=== PATIENT | female | born 1970 | race Caucasian/White ===

== ENCOUNTER 2023-12-04 00:45 | Emergency (ER) | payer BC, SELFPAY ==
[2023-12-04 00:54] VITALS: BP 148/74
[2023-12-04 01:35] VITALS: BMI 31.9
[2023-12-04 01:37] VITALS: BP 134/79
[2023-12-04 01:46] LABS: % Basophils 0.5 % (0-2); % Immature Granulocytes 0.3 % (0-0.5); % Lymphocytes 25.8 % (20.5-51.1); % Monocytes 7.2 % (1.7-9.3); % Neutrophils 64.2 % (42.2-75.2); Absolute Eosinophils 0.2 10^3/uL (0-0.7); Absolute Lymphocytes 1.9 10^3/uL (1.2-3.4); Absolute Monocytes 0.5 10^3/uL (0.1-0.6); Absolute Neutrophils 4.8 10^3/uL (1.4-6.5); Hematocrit 35.8 % (37.0-47.0); Hemoglobin 12.5 g/dL (12.0-16.0); Mean Corp Hgb Conc. 34.9 g/dL (33.0-37.0); Mean Corpuscular Volume 88.8 fL (81.0-99.0); Nucleated Red Blood Cells % 0 %; Platelet Count 352 10^3/uL (130-400); Red Blood Cell Count 4.03 10^6/uL (4.20-5.40); Red Cell Dist. Width 12.5 % (11.5-14.5); White Blood Cell Count 7.5 10^3/uL (4.8-10.8)
[2023-12-04 02:00] VITALS: BP 116/69
[2023-12-04 02:03] LABS: ALT (SGPT) 31 U/L (0-35); AST (SGOT) 31 U/L (14-36); Albumin 4.4 g/dl (3.5-5.0); Alkaline Phosphatase 91 U/L (38-126); Blood Urea Nitrogen 22 mg/dl (7-17); Calcium 9.6 mg/dl (8.4-10.2); Carbon Dioxide 27 mmol/L (22-30); Chloride 101 mmol/L (98-107); Estimated Creatinine Clearance 92 ml/min; Glucose 123 mg/dl (70-99); Potassium 3.4 mmol/L (3.5-5.1); Sodium 142 mmol/L (135-145); Total Bilirubin 0.8 mg/dl (0.2-1.3); Total Protein 7.6 g/dl (6.3-8.2); eGFR > 60.00
[2023-12-04 02:08] LABS: Troponin I < 0.012 ng/ml
--- NOTE | 2023-12-04 02:45 | EDRN ---
Updated patient on blood work, and she is aware we are just waiting on the provider at this time, no complaints at this time.
--- NOTE | 2023-12-04 02:52 | ED.GENMED ---
History of Present Illness
<ASHLEY Reid - Last Filed: 12/04/23 06:12>
General
Chief Complaint: Chest Pain
Source: patient
Time Seen by Provider: 12/04/23 02:38
Nursing documentation reviewed up to this point in time: agreed with
History of Present Illness
History of Present Illness:
A 53-year-old female with a past medical history of migraine hypertension anxiety hyperlipidemia presents to the emergency room for sudden onset chest pain for 2 hours. Patient states the chest pain woke her from sleep. She states that she got up
out of bed but immediately felt like she was going to pass out so she laid herself out on the floor. She stated that she tried chewing gum to relieve the passing out symptoms. Patient stated that her pain at the moment is now dull and mild. She
denies respiratory pain, difficulty breathing, palpatations, abdominal pain, nausea, vomiting, diarrhea.
Patient states she has an extensive history of syncopal episodes and is followed by cardio GI and neurology. Her last syncopal episode was 2 years ago which resulted in a head injury, and ED visit, and a CT scan which was negative. She states
that she was recently diagnosed with asthma and has began albuterol as of a week ago.
Past History
<ASHLEY Reid - Last Filed: 12/04/23 06:12>
Past History
ED Past Medical History: Asthma, HTN, Hypercholesterolemia, Other (anemia) and Other (recurrent vasovagal syncope )
ED Past Surgical History: and Tonsilectomy
Social History
Tobacco: Non-smoker
Alcohol: Occasional
Drug: None
Personal:
Living: with family
Employment: Employed
Family History
Family History: Diabetes; Negative Early CAD or Sudden
Review of Systems
<ASHLEY Reid - Last Filed: 12/04/23 06:12>
Review of Systems
Constitutional: Reports no symptoms
Respiratory: Denies cough or trouble breathing
Cardiac: Reports chest pain
ABD/GI: Reports no symptoms
: Reports no symptoms
Musculoskeletal: Reports no symptoms
Skin: Reports no symptoms
Neurological: Reports no symptoms
Endocrine: Reports no symptoms
Phy Exam
<ASHLEY Reid - Last Filed: 12/04/23 06:12>
General Physical Exam
General Presentation: well appearing and no apparent distress
General age: appears stated age
General Skin: warm and dry
General Habitus: normal and obese
General Mental: alert
General Hydration: appears well hydrated
Eye Exam
Eye Exam: PERRL and EOMI
Cardiovascular Exam
Cardiovascular Exam: regular rate/rhythm, no edema, no gallop, no murmur and normal peripheral pulses
Pulmonary Exam
Pulmonary Exam: lungs clear, no respiratory distress, no rales, chest non tender, no crackles and no wheezing
Neurological Exam
Neurological Exam: alert and oriented x3
Musculoskeletal Exam
Musculoskeletal Exam: full ROM and neuro vasc intact
Skin Exam
Skin Exam: normal color, warm/dry and no rash
Psychiatric Exam
Psychiatric Exam: normal mood/affect
Scores
<ASHLEY Reid - Last Filed: 12/04/23 06:12>
Heart Score for Chest Pain Patients
STEMI patient?: No
History: Slightly or Non-Suspicious
ECG: Normal
Age: >45 - <65 years
Risk Factors: 1 or 2 Risk Factors
Troponin: </= Normal Limit
Heart Score for Chest Pain Patients: 2
Heart Score Risk: 2.5% MACE over next 6 weeks
<Hoa Fu DO - Last Filed: 12/04/23 06:37>
Heart Score for Chest Pain Patients
Heart Score for Chest Pain Patients: 2
Heart Score Risk: 2.5% MACE over next 6 weeks
Course
<ASHLEY Reid - Last Filed: 12/04/23 06:12>
Orders/Labs/Results
Orders:
Orders
12/04/23 00:48
ECG [Electrocardiogram (*1)] Urgent
Reason for Study: Chest Pain
EKG- Treatment ONCE
12/04/23 01:38
Complete Blood Count/With Diff Urgent
Comprehensive Metabolic Panel Urgent
Lipase Urgent
Comment: ADD ON
Troponin I Urgent
12/04/23 03:19
Add On- LAB Urgent
Tests Added?: LIPASE
12/04/23 03:28
Mag Hydrox/Al Hydrox/Simeth [Maalox] 30 ml Phenobarb/Hyoscy/Atropine/Scop [] 10 ml Viscous Lidocaine 2% [Xylocaine Viscous Cup] 10 ml PO NOW
12/04/23 03:36
Troponin I Urgent
12/04/23 03:38
Mag Hydrox/Al Hydrox/Simeth [Maalox] 30 ml .ROUTE .STK-MED ONE
Phenobarb/Hyoscy/Atropine/Scop [] 10 ml .ROUTE .STK-MED ONE
12/04/23 03:39
Viscous Lidocaine 2% [Xylocaine Viscous Cup] 15 ml .ROUTE .STK-MED ONE
12/04/23 04:57
CT Chest Angio W/wo Iv Contras Urgent
Comment:
Reason For Exam: acute severe SSCP w diaphoresis, near syncope
Abnormal Lab Results
12/04/23
01:38
RBC 4.03 L 10^6/uL
(4.20-5.40)
Hct 35.8 L %
(37.0-47.0)
Potassium 3.4 L mmol/L
(3.5-5.1)
BUN 22 H mg/dl
(7-17)
Glucose 123 H mg/dl
(70-99)
12/04/23 01:38
12/04/23 01:38
Vital Signs
Initial and Last Documented VS:
Initial Vital Signs
Temp Pulse Resp BP Pulse Ox
98.1 F 64 20 148/74 98
12/04/23 00:54 12/04/23 00:54 12/04/23 00:54 12/04/23 00:54 12/04/23 00:54
Last Documented Vital Signs
Temp Pulse Resp BP Pulse Ox
98.1 F 59 13 114/82 99
12/04/23 00:54 12/04/23 05:15 12/04/23 05:15 12/04/23 05:00 12/04/23 05:15
<Hoa Fu, DO - Last Filed: 12/04/23 06:37>
Orders/Labs/Results
Orders:
Orders
12/04/23 00:48
ECG [Electrocardiogram (*1)] Urgent
Reason for Study: Chest Pain
EKG- Treatment ONCE
12/04/23 01:38
Complete Blood Count/With Diff Urgent
Comprehensive Metabolic Panel Urgent
Lipase Urgent
Comment: ADD ON
Troponin I Urgent
12/04/23 03:19
Add On- LAB Urgent
Tests Added?: LIPASE
12/04/23 03:28
Mag Hydrox/Al Hydrox/Simeth [Maalox] 30 ml Phenobarb/Hyoscy/Atropine/Scop [] 10 ml Viscous Lidocaine 2% [Xylocaine Viscous Cup] 10 ml PO NOW
12/04/23 03:36
Troponin I Urgent
12/04/23 03:38
Mag Hydrox/Al Hydrox/Simeth [Maalox] 30 ml .ROUTE .STK-MED ONE
Phenobarb/Hyoscy/Atropine/Scop [] 10 ml .ROUTE .STK-MED ONE
12/04/23 03:39
Viscous Lidocaine 2% [Xylocaine Viscous Cup] 15 ml .ROUTE .STK-MED ONE
12/04/23 04:57
CT Chest Angio W/wo Iv Contras Urgent
Comment:
Reason For Exam: acute severe SSCP w diaphoresis, near syncope
Abnormal Lab Results
12/04/23
01:38
RBC 4.03 L 10^6/uL
(4.20-5.40)
Hct 35.8 L %
(37.0-47.0)
Potassium 3.4 L mmol/L
(3.5-5.1)
BUN 22 H mg/dl
(7-17)
Glucose 123 H mg/dl
(70-99)
12/04/23 01:38
12/04/23 01:38
Vital Signs
Initial and Last Documented VS:
Initial Vital Signs
Temp Pulse Resp BP Pulse Ox
98.1 F 64 20 148/74 98
12/04/23 00:54 12/04/23 00:54 12/04/23 00:54 12/04/23 00:54 12/04/23 00:54
Last Documented Vital Signs
Temp Pulse Resp BP Pulse Ox
98.1 F 59 13 114/82 99
12/04/23 00:54 12/04/23 05:15 12/04/23 05:15 12/04/23 05:00 12/04/23 05:15
<ASHLEY Reid - Last Filed: 12/04/23 06:12>
MDM/Problems Addressed
Differential Diagnosis Includes:
vasovagal syncope event , myocardial infarction,
Chronic conditions affecting care: HTN
<ASHLEY Reid - Last Filed: 12/04/23 06:12>
*Critical Care Note
Total Time (30-74mins, 75-104mins- exclusive of procedures): Not Applicable
<Hoa Fu DO - Last Filed: 12/04/23 06:37>
*Radiology
Radiology exam reviewed: radiology read reviewed
*Pulse Oximetry
Patient hypoxic: no
*EKG
Interpreted by ED Provider?: Yes
Interpretation: normal
Comparison EKG: no changes (Unchanged from previous December 06, 2022)
Rate: normal
Rhythm: sinus
[place]: normal axis
Interval: normal interval
QRS Pattern: normal QRS
Ischemia: no ischemia
*Certified Veterinary Technician Interpretation
Rate: normal
Interpretation: normal
Rhythm: sinus
ED Attending Note
<ASHLEY Reid - Last Filed: 12/04/23 06:12>
-
Portions of this chart may have been created with voice recognition software.� Occasional wrong word or��sound alike� substitutions may have occurred due to the inherent limitations of voice recognition software.
<Hoa Fu DO - Last Filed: 12/04/23 06:37>
ED Attending Note
Patient seen and examined by attending physician: Yes
I performed the substantive portion of visit, reviewed & personally made and approve the management plan that is documented in note by myself or JERZY.: Yes
ED Attending Note:
This is a 53-year-old woman with history of hypertension, history of vasovagal syncope, migraine headaches, hyperlipidemia who states she awoke around midnight tonight with abrupt onset of lower substernal chest pain, severe in nature, nonradiating,
initially associated with mild nausea, no diaphoresis, no shortness of breath, no palpitations. No history of similar episodes of chest pain. While attempting to look for an ant-acid she admits to continued severe substernal chest pain with
associated lightheadedness and diaphoresis, feeling that she was having a vasovagal episode causing her to lie down abruptly. She did not pass out, she does note several episodes of burping and after which chest pain improved.
Since arrival to the ED feeling markedly improved, near complete resolution of chest pain. She continues to deny back pain, denies abdominal pain.
Dinner last night of steak and sweet potatoes was later than usual and then afterwards she was still hungry and does admit to consuming a granola bar and some rice cakes around 11 PM.
GENERAL: 53-year-old woman appears her stated age, bright and alert, pleasant, appears in no acute distress. is accompanying.
EYE: pupils equal and reactive. anicteric
NECK: Supple, nontender, no meningismus, no significant adenopathy.
ENT: oral mucosa is moist. No rhinorrhea.
CARDIAC: Regular rate and rhythm. no murmur.
LUNGS: Clear breath sounds bilaterally, no acute respiratory distress, no wheezes/rales/rhonchi. No chest wall tenderness.
ABDOMEN: Soft, nondistended, without focal tenderness, no r/g, normoactive BS.
NEUROLOGICAL: Alert and oriented x3, no focal neuro deficits. Gait is fraser and steady.
SKIN: Warm and dry, normal color, skin intact. No rash.
MUSCULOSKELETAL: No C/C/E. peripheral pulses are full and equal b/l. No palpable tenderness.
PSYCH: Normal and appropriate interaction.
Concern for ACS, GERD, dissection, less likely pancreatitis, chest wall pain.
EKG is unremarkable showing normal sinus rhythm at 60, normal axis, normal intervals, no acute ST-T wave abnormalities.
Labs thus far unremarkable save for minimally low potassium at 3.4. Troponin is negative. Will add lipase, repeat troponin.
Will trial GI cocktail.
12/04/2023 0500 AM
Repeat troponin is negative.
Patient reports questionable to know relief of chest pain after GI cocktail.
Overall appears comfortable but due to abrupt onset of severe chest pain associated with an episode of diaphoresis, near syncope must consider dissection thus will check CT angio of the chest.
12/04/[address] angiogram is negative for dissection. There is note of several small pulmonary nodules bilateral lower lobes with recommendations for follow-up imaging in 6 to 12 months to assess stability.
I suspect patient's chest pain was GERD in nature and recommend [id number] Pepcid versus omeprazole, bland diet and prompt follow-up with PCP for recheck.
Discharge Plan
Departure
Patient Disposition: Home (Routine Discharge)
Date of Disposition: 12/04/23
Time of Disposition: 06:29
Patient with high blood pressure during this ER visit?: No
Condition: Good
Discharge Problem:
Non-cardiac chest pain, Chest pain due to GERD
Instructions: Acid Reflux and GERD in Adults (DC), Chest Pain PCP Follow Up
Prescriptions:
No Action
Xanax:
5 mg PO Q8H PRN (Reason: anxiety)
citalopram [Celexa] 10 MG tablet
20 mg PO DAILY
ferrous sulfate [Iron (ferrous sulfate)] 325 MG tablet
325 mg PO DAILY
hydrochlorothiazide 12.5 MG capsule
25 mg PO DAILY
fish oil-dha-epa 1 EACH capsule
1 ea PO BID
multivitamin Tablet
1 tab PO DAILY
Benefiber + Calcium Sugar-Free 3 gram-200 mg /6 gram Powder
2 PO DAILY
Qulipta 60 mg Tablet
60 mg PO DAILY
amlodipine 5 mg Tablet
5 mg PO DAILY
Referrals:
Yani Briggs CRNP [Family Provider] -
Interventions
Interventions:
*Risk Screen - Suicide Last Done: 12/04/23 00:54
*General Assessment Last Done: 12/04/23 01:35
*Neglect/Abuse Screening Last Done: 12/04/23 00:54
ED- Fall Risk Assessment Last Done: 12/04/23 01:35
*ED COVID-19 Vaccine History Last Done: 12/04/23 01:35
ED- Cardiac Assessment Last Done: 12/04/23 01:35
Discharge Date and Time
Print Language: GREEK
[2023-12-04 03:00] VITALS: BP 139/87
[2023-12-04] MEDS: MAALOX 50 PO (03:39)
[2023-12-04 04:00] VITALS: BP 115/72
[2023-12-04 04:10] LABS: Troponin I < 0.012 ng/ml
[2023-12-04 04:13] LABS: Lipase 97 U/L (23-300)
[2023-12-04 05:00] VITALS: BP 114/82
== END 2023-12-04 06:45 | disposition home or self-care (01) ==
LOC: EMR 00:45
PROVIDERS: Emergency Medicine; EMERGENCY PHYSICIAN Emergency Medicine; FAMILY PHYSICIAN Nurse Practitioner Adult Health
DX: R07.89 Other chest pain (principal); K21.9 Gastro-esophageal reflux disease without esophagitis; I10 Essential (primary) hypertension; F41.9 Anxiety disorder, unspecified; E78.00 Pure hypercholesterolemia, unspecified; J45.909 Unspecified asthma, uncomplicated; Z83.3 Family history of diabetes mellitus
CPT/HCPCS: 99284; 71275; 80053; 83690; 84484; 85025; 93005; Q9967

== ENCOUNTER → 2023-12-20 08:16 | Outpatient (REF) | payer BC, SELFPAY ==
--- NOTE | 2023-12-18 09:25 | OID.L.PAT ---
Pulmonary Nodule Pat Letter
- -
12/18/23
LIZETT SEGUNDO
[address]
[place], [place] [address]
Deameet PHOEN[place],
A pulmonary nodule was seen on an imaging study done by [facility]. This was reviewed by the [facility] Pulmonary Nodule Advisory Board and the following recommendation was made:
Recommendation: Follow up CT Chest in one year
If you have any questions, please do not hesitate to contact your primary care physician. If you are in need of a Physician, you can go to [email or web address] and click on 'Find a Provider'. Type 'Family Medicine' in the search.
Oncology Nurse Navigator
[facility]
[phone]
--- NOTE | 2023-12-18 09:26 | OID.L.REC ---
Pulmonary Nodule Follow Up
- Recommendation
12/18/23
Pulmonary Nodule Review Recommendations
Your patient, LIZETT SEGUNDO, had a pulmonary nodule seen on an imaging study done on 12/04/23 in the [facility] Emergency Room.
This was reviewed by the [facility] Pulmonary Nodule Advisory Board and the following recommendation was made:
Recommendation: Follow up CT Chest in one year
If you have any questions please do not hesitate to contact us.
Sincerely,
Oncology Nurse Navigator
[facility]
[phone]
== END ==
LOC: RCS 08:16
PROVIDERS: ATTENDING PHYSICIAN Physician Assistant Medical; FAMILY PHYSICIAN Nurse Practitioner Adult Health
DX: R07.9 Chest pain, unspecified (principal)
CPT/HCPCS: 93017; 93350

== ENCOUNTER 2024-05-21 23:35 | Emergency (ER) | payer BC, SELFPAY ==
[2024-05-21 23:38] VITALS: BP 146/94
[2024-05-21 23:54] LABS: Urine Albumin 4+ (Neg - Trace); Urine Bilirubin Negative (Negative); Urine Character Bloody (Clear); Urine Color Red; Urine Glucose Negative (Negative); Urine Ketone Negative (Negative); Urine Leukocyte 3+ (Negative); Urine Nitrite Negative (Negative); Urine Occult Blood 4+ (Negative); Urine Urobilinogen Negative (Neg - 1+)
[2024-05-22 00:09] LABS: Urine Bacteria Moderate (Negative); Urine Red Blood Cell >100 /HPF (0-2)
--- NOTE | 2024-05-22 01:02 | ED.GENMED ---
History of Present Illness
General
Chief Complaint: Urinary Symptoms
Source: patient
Exam Limitations: none
Time Seen by Provider: 05/22/24 00:58
Nursing documentation reviewed up to this point in time: agreed with
History of Present Illness
History of Present Illness:
53-year-old female with a past medical history of migraines, anxiety, recurrent syncope, who presents to the emergency department today with concerns of gross hematuria. Patient reports that this started about around 9:30 PM this evening when
patient was getting ready to go to bed. Patient reports that when she was urinating, she noticed pink-tinged urine and then suddenly felt that she was unable to urinate. This lasted a few seconds and then she started to have dribbling of urine and
darker blood noted with urination. Patient denies flank pain. After that time, patient noticed that she had increased frequency and was going to the bathroom every few minutes. She also notes some burning with urination as well. She denies any
pelvic pain, abdominal pain, nausea or vomiting. Patient states that she has been told she has had microscopic hematuria in the past but she has never had gross hematuria before. She has never been evaluated by a urologist.
Past History
Past History
ED Past Medical History: Asthma, HTN, Hypercholesterolemia, Other (anemia) and Other (recurrent vasovagal syncope )
ED Past Surgical History: and Tonsilectomy
Social History
Tobacco: Non-smoker
Alcohol: Occasional
Drug: None
Personal:
Living: with family
Employment: Employed
Family History
Family History: Diabetes; Negative Early CAD or Sudden
Review of Systems
Review of Systems
All Other Systems: ROS reviewed and negative except as documented in HPI and ROS
Phy Exam
Physical Exam
Physical Exam:
General: Patient is well appearing and in no acute distress; non-toxic
Skin: Warm and dry, no rashes or lesions
Head: Normocephalic, atraumatic
Eyes: Sclera non-icteric. EOMs intact.
Cardiac: Regular rate and rhythm, no murmurs
Peripheral Vascular: No lower extremity swelling or edema
Pulm: Normal respiratory effort, no wheezes, rales, or rhonchi
Abdomen: No abdominal tenderness to palpation
Neuro: CN II-XII intact, no focal neurologic deficits.
Psychiatric: Appropriate mood and affect.
Course
Orders/Labs/Results
Orders:
Orders
05/21/24 23:43
Urinalysis Reflex To Culture Urgent
Date Specimen was Collected: 05/21/24
Time Specimen was Collected: 23:41
Urine Microscopic Reflex Cult Urgent
Urine Culture Urgent
JOHN Source: U
Specimen Description:
Date Specimen was Collected: 05/21/24
Time Specimen was Collected: 23:41
05/22/24 01:20
0.9% Sodium Chloride 1000 ml [Nss] 1,000 ml IV BOLUS
Ondansetron Injectable [Zofran] 4 mg IV NOW STA
US Kidneys and US Bladder [US Renal With Bladder] Urgent
Comment:
Reason For Exam: hematuria, difficulty emptying
05/22/24 01:40
Complete Blood Count/With Diff Urgent
Comprehensive Metabolic Panel Urgent
05/22/24 03:43
Cephalexin Monohydrate [Keflex] 500 mg .ROUTE .STK-MED ONE
05/22/24 03:44
Cephalexin Monohydrate [Keflex] 500 mg PO NOW STA
Abnormal Lab Results
05/21/24 05/22/24
23:43 01:40
WBC 15.1 H 10^3/uL
(4.8-10.8)
MCH 31.3 H pg
(27.0-31.0)
Abs Immat Gran (auto) 0.1 H 10^3/uL
(0-0.05)
Absolute Neuts (auto) 12.2 H 10^3/uL
(1.4-6.5)
Absolute Monos (auto) 0.8 H 10^3/uL
(0.1-0.6)
Neutrophils % 80.9 H %
(42.2-75.2)
Lymphocytes % 12.1 L %
(20.5-51.1)
Glucose 115 H mg/dl
(70-99)
Total Bilirubin 1.4 H mg/dl
(0.2-1.3)
Ur Occult Blood Reflex 4+ A
(Negative)
Leukocyte Esterase Rfl 3+ A
(Negative)
Urine RBC >100 A /HPF
(0-2)
Urine Bacteria (Reflex) Moderate A
(Negative)
Urine Albumin (Reflex) 4+ A
(Neg - Trace)
05/22/24 01:40
05/22/24 01:40
Vital Signs
Initial and Last Documented VS:
Initial Vital Signs
Temp Pulse Resp BP Pulse Ox
97.8 F 84 18 146/94 98
05/21/24 23:38 05/21/24 23:38 05/21/24 23:38 05/21/24 23:38 05/21/24 23:38
Last Documented Vital Signs
Temp Pulse Resp BP Pulse Ox
97.8 F 84 18 146/94 99
05/21/24 23:38 05/21/24 23:38 05/21/24 23:38 05/21/24 23:38 05/22/24 01:03
MDM/Problems Addressed
Differential Diagnosis Includes:
ddx include acute cystitis, polycystic kidney disease, renal stone, bladder carcinoma, ureteral stricture, interstitial cystitis
MDM/Problems Addressed:
53-year-old female history of migraines, anxiety, recurrent syncope, who presents to the emergency department today with concerns of gross hematuria. She notes dysuria and urinary frequency as well. On physical exam she is well-appearing no acute
distress she is afebrile. She does have elevated glucose cytosis likely secondary to acute cystitis. She has no evidence of obstructive process on ultrasound. She is not retaining is currently urinating without any difficulties. Hematuria did
start to resolve now she noticed pink-tinged urine. Will start on Keflex to cover for UTI. Did discuss return precautions and stressed follow-up with urology. Patient stable for discharge.
Chronic conditions affecting care:
htn, covid
*Critical Care Note
Total Time (30-74mins, 75-104mins- exclusive of procedures): Not Applicable
Update Note
Update Note:
When I was discussing the causes of hematuria, patient states that she felt nervous and felt nauseous and felt presyncopal. I did have patient lay supine and gave her IV fluids and Zofran. Patients symptoms did resolve and she did not have a
syncopal episode. Patient states that she does has a history of recurrent syncope especially in the medical setting.
ED Attending Note
-
Portions of this chart may have been created with voice recognition software.� Occasional wrong word or��sound alike� substitutions may have occurred due to the inherent limitations of voice recognition software.
Discharge Plan
Departure
Patient Disposition: Home (Routine Discharge)
Date of Disposition: 05/22/24
Time of Disposition: 03:05
Patient with high blood pressure during this ER visit?: Yes
Condition: Good
Discharge Problem:
Gross hematuria, Acute cystitis
Instructions: Urinary Tract Infection, Adult (DC), Blood in the Urine (Hematuria), Adult (DC), BLOOD PRESSURE
Prescriptions:
New
cephalexin 500 mg capsule
500 mg PO BID 7 Days Qty: 14 0RF
No Action
Xanax:
5 mg PO Q8H PRN (Reason: anxiety)
citalopram [Celexa] 10 MG tablet
20 mg PO DAILY
ferrous sulfate [Iron (ferrous sulfate)] 325 MG tablet
325 mg PO DAILY
hydrochlorothiazide 12.5 MG capsule
25 mg PO DAILY
fish oil-dha-epa 1 EACH capsule
1 ea PO BID
multivitamin Tablet
1 tab PO DAILY
Benefiber + Calcium Sugar-Free 3 gram-200 mg /6 gram Powder
2 PO DAILY
Qulipta 60 mg Tablet
60 mg PO DAILY
amlodipine 5 mg Tablet
5 mg PO DAILY
Referrals:
Chepe Rossi MD [Active] - Call in 1-3 days for appt
Yani Briggs CRNP [Family Provider] -
Activity Restrictions/Additional Instructions:
Please call the attached number later today to schedule appointment with urology for follow-up.
Keflex has been sent to your pharmacy. Please take 1 tablet twice daily for 7 days.
PLEASE RETURN EMERGENCY DEPARTMENT DEVELOP CHEST PAIN, SHORTNESS OF BREATH, DIZZINESS, LIGHTHEADEDNESS, INABILITY TO URINATE, INTRACTABLE NAUSEA OR VOMITING, FEVERS OR CHILLS, FLANK PAIN, OR ANY OTHER SIGNS OR SYMPTOMS WORRISOME TO YOU,
Interventions
Interventions:
*Risk Screen - Suicide Last Done: 05/21/24 23:38
*General Assessment Last Done: 05/22/24 01:03
*Neglect/Abuse Screening Last Done: 05/21/24 23:38
*ED- Fall Risk Assessment Last Done: 05/22/24 01:03
*ED COVID-19 Vaccine History Last Done: 05/22/24 01:03
*Nursing Disposition Last Done: 05/22/24 03:48
ED-Female Genitourinary Assessment Last Done: 05/22/24 01:03
Discharge Date and Time
Discharge Date/Time: 05/22/24 03:49
Print Language: BAHRAINI
[2024-05-22 01:03] VITALS: BMI 32.0
[2024-05-22] MEDS: NSS 1000 IV (01:38)
[2024-05-22] MEDS: ZOFRAN 4 MG IV (01:39)
[2024-05-22 01:49] LABS: % Basophils 0.3 % (0-2); % Eosinophils 0.9 % (0-6); % Immature Granulocytes 0.4 % (0-0.5); % Lymphocytes 12.1 % (20.5-51.1); % Monocytes 5.4 % (1.7-9.3); % Neutrophils 80.9 % (42.2-75.2); Absolute Eosinophils 0.1 10^3/uL (0-0.7); Absolute Immature Granulocytes 0.1 10^3/uL (0-0.05); Absolute Lymphocytes 1.8 10^3/uL (1.2-3.4); Absolute Monocytes 0.8 10^3/uL (0.1-0.6); Absolute Neutrophils 12.2 10^3/uL (1.4-6.5); Hematocrit 37.4 % (37.0-47.0); Hemoglobin 13.2 g/dL (12.0-16.0); Mean Corp Hgb Conc. 35.3 g/dL (33.0-37.0); Mean Corpuscular Hgb 31.3 pg (27.0-31.0); Mean Corpuscular Volume 88.6 fL (81.0-99.0); Mean Platelet Volume 9.2 fL (7.4-10.4); Nucleated Red Blood Cells % 0 %; Platelet Count 285 10^3/uL (130-400); Red Blood Cell Count 4.22 10^6/uL (4.20-5.40); Red Cell Dist. Width 12.9 % (11.5-14.5); White Blood Cell Count 15.1 10^3/uL (4.8-10.8)
[2024-05-22 02:06] LABS: ALT (SGPT) 21 U/L (0-35); AST (SGOT) 25 U/L (14-36); Albumin 4.8 g/dl (3.5-5.0); Alkaline Phosphatase 90 U/L (38-126); Blood Urea Nitrogen 17 mg/dl (7-17); Carbon Dioxide 28 mmol/L (22-30); Chloride 102 mmol/L (98-107); Estimated Creatinine Clearance 107 ml/min; Glucose 115 mg/dl (70-99); Potassium 3.5 mmol/L (3.5-5.1); Sodium 141 mmol/L (135-145); Total Bilirubin 1.4 mg/dl (0.2-1.3); Total Protein 7.9 g/dl (6.3-8.2); eGFR > 60.00
[2024-05-22] MEDS: KEFLEX 500 MG PO (03:45)
== END 2024-05-22 03:49 | disposition home or self-care (01) ==
LOC: EMR 23:35
PROVIDERS: Physician Assistant; EMERGENCY PHYSICIAN Emergency Medicine; FAMILY PHYSICIAN Nurse Practitioner Adult Health
DX: N30.01 Acute cystitis with hematuria (principal); J45.909 Unspecified asthma, uncomplicated; I10 Essential (primary) hypertension; E78.00 Pure hypercholesterolemia, unspecified
CPT/HCPCS: 96374; 96361; 99284; 76770; 80053; 81003; 81015; 85025; 87077; 87086; 87186

== ENCOUNTER → 2024-06-21 13:03 | Outpatient (REF) | payer BC, SELFPAY | LOC: HWRAD 13:03 | PROVIDERS: ATTENDING PHYSICIAN Internal Medicine Critical Care Medicine; FAMILY PHYSICIAN Nurse Practitioner Adult Health | DX: R93.89 Abnormal findings on diagnostic imaging of other specified body structures (principal); R91.8 Other nonspecific abnormal finding of lung field | CPT/HCPCS: 71250 ==

== ENCOUNTER → 2024-10-07 07:55 | Outpatient (REF) | payer BC, SELFPAY | LOC: HWRAD 07:55 | PROVIDERS: ATTENDING PHYSICIAN Obstetrics & Gynecology; FAMILY PHYSICIAN Nurse Practitioner Adult Health | DX: N92.0 Excessive and frequent menstruation with regular cycle (principal) | CPT/HCPCS: 76830; 76856 ==

== ENCOUNTER → 2024-10-07 13:47 | Outpatient (REF) | payer BC, SELFPAY | LOC: DHSLP 13:47 | PROVIDERS: ATTENDING PHYSICIAN Internal Medicine; FAMILY PHYSICIAN Nurse Practitioner Adult Health | DX: G47.00 Insomnia, unspecified (principal); R06.83 Snoring | CPT/HCPCS: 95800 ==

== ENCOUNTER → 2025-01-29 07:48 | Outpatient (REF) | payer BC, SELFPAY | LOC: HWRAD 07:48 | PROVIDERS: ATTENDING PHYSICIAN Urology; FAMILY PHYSICIAN Nurse Practitioner Adult Health | DX: G93.5 Compression of brain (principal); R33.9 Retention of urine, unspecified | CPT/HCPCS: 76857 ==